=== PATIENT | female | born 1975 | race Two or more races ===

== ENCOUNTER 2016-09-21 20:10 | Emergency (ER) | payer MEDICAID ==
[~2016-09-21] VITALS: Ht 160 cm; Wt 72.6 kg
[2016-09-21 21:14] LABS: Basophils # (auto) 0 uL; Basophils % (auto) 0.2 % (0.0-2.0); DEFINITIVE VIEW TRANSMISSION; Eosinophils # (auto) 0 uL; Hematocrit 26.3 % (36.0-46.0); Hemoglobin 7.1 g/dL (12.2-16.2); Lymphocytes % (auto) 27.4 % (10.0-50.0); Mean Corpuscular Hemoglobin 13.8 pg (28.0-32.0); Mean Corpuscular Hgb Conc. 26.9 g/dL (32.0-36.0); Mean Corpuscular Volume 51.2 fL (80.0-100.0); Mean Platelet Volume 9.6 fL (7.4-10.4); Monocytes # (auto) 0.2 uL; Monocytes % (auto) 2.9 % (0.0-12.0); Neutrophils # (auto) 5.1 uL; Neutrophils % (auto) 69.5 % (37.0-80.0); Platelet Count (auto) 612 10^3/uL (140-450); SUSPECT VIEW TRANSMISSION; White Blood Cell 7.3 10^3/uL (4.4-10.8)
[2016-09-21 21:17] LABS: Red Cell Distribution Width 20.9 % (11.6-16.0)
[2016-09-21 21:33] LABS: BUN/Creatinine Ratio 21.2; Calcium 8.6 mg/dL (8.5-10.1); Potassium 3.6 mmol/L (3.5-5.1)
[2016-09-21 21:36] LABS: Bilirubin, Total 0.6 mg/dL (0.2-1.0); Total Protein 8.1 g/dL (6.4-8.2)
[2016-09-21 21:47] LABS: Platelet Estimate Increased
[2016-09-21 21:48] LABS: Anisocytosis Moderate; Burr Cells FEW; Giant Platelets Few; Hypochromia Moderate; Microcytosis Moderate; Ovalocytes FEW; Tear Drop Cells FEW
[2016-09-22 09:02] LABS: Urine Bilirubin Negative (Negative); Urine Blood Negative /uL (Negative); Urine Color Yellow (Yellow); Urine Glucose Normal (Normal); Urine Ketone Negative (Negative); Urine Mucus FEW (None Seen); Urine Nitrite Negative (Negative); Urine RBC <1 /hpf (0 - 4); Urine Squamous Epithelial Cell FEW /hpf (<5); Urine Urobilinogen Normal (Negative)
[2016-09-22] MEDS ORDERED: MORPHINE SULF INJ 2 MG/ML SYRINGE 1ML IV ONE (09:45)
[2016-09-22] MEDS ORDERED: ONDANSETRON HCL 4 MG/2 ML VIAL IV ONE (09:45)
[2016-09-22] MEDS ORDERED: FERROUS SULFATE 325 MG TAB PO ONE (13:45)
[2016-09-22 14:17] VITALS: BP 110/65
== END 2016-09-22 14:21 | disposition home or self-care (01) ==
LOC: ER 20:14
DX: D64.9 Anemia, unspecified (principal); G43.909 Migraine, unspecified, not intractable, without status migrainosus
CPT/HCPCS: 36415; 70450; 80053; 81001; 85025; 86850; 86860; 86870; 86880; 86900; 86901; 86905; 86906; 86970; 86971; 96374; 96375; 99285; J2270; J2405; J7030